=== PATIENT | male | born 1940 | race Caucasian/White ===

== ENCOUNTER → 2023-11-20 11:33 | Outpatient (REF) | payer OTHER, SELFPAY | LOC: HWRAD 11:33 | PROVIDERS: ATTENDING PHYSICIAN Family Medicine | DX: J20.9 Acute bronchitis, unspecified (principal) | CPT/HCPCS: 71046 ==

== ENCOUNTER → 2023-11-25 15:52 | Outpatient (REF) | payer OTHER, SELFPAY | LOC: DHCBC HW 15:52 | PROVIDERS: ATTENDING PHYSICIAN Internal Medicine; FAMILY PHYSICIAN Family Medicine | DX: I25.10 Atherosclerotic heart disease of native coronary artery without angina pectoris (principal); R07.9 Chest pain, unspecified; I73.9 Peripheral vascular disease, unspecified | CPT/HCPCS: 93306 ==

== ENCOUNTER → 2023-12-16 07:39 | Outpatient (REF) | payer OTHER, SELFPAY | LOC: DHCBC/DCA 07:39 | PROVIDERS: ATTENDING PHYSICIAN Internal Medicine; FAMILY PHYSICIAN Family Medicine | DX: R07.9 Chest pain, unspecified (principal); I25.10 Atherosclerotic heart disease of native coronary artery without angina pectoris; I73.9 Peripheral vascular disease, unspecified | CPT/HCPCS: 78452; 93017; A9500; J2785 ==

== ENCOUNTER → 2024-02-16 09:41 | Outpatient (REF) | payer OTHER, SELFPAY | LOC: RAD 09:41 | PROVIDERS: ATTENDING PHYSICIAN Surgery Vascular Surgery; FAMILY PHYSICIAN Family Medicine | DX: I73.9 Peripheral vascular disease, unspecified (principal) | CPT/HCPCS: 93922; 93925 ==

== ENCOUNTER → 2024-08-30 13:24 | Outpatient (REF) | payer OTHER, SELFPAY | LOC: MRI 13:24 | PROVIDERS: ATTENDING PHYSICIAN Orthopaedic Surgery; FAMILY PHYSICIAN Family Medicine | DX: M54.50 Low back pain, unspecified (principal) | CPT/HCPCS: 72148 ==

== ENCOUNTER → 2024-09-01 10:47 | Outpatient (REF) | payer OTHER, SELFPAY | LOC: RAD 10:47 | PROVIDERS: ATTENDING PHYSICIAN Registered Nurse; FAMILY PHYSICIAN Family Medicine | DX: I73.9 Peripheral vascular disease, unspecified (principal) | CPT/HCPCS: 93922; 93925 ==

== ENCOUNTER → 2024-09-27 11:30 | Outpatient (REF) | payer OTHER, SELFPAY ==
[2024-09-27 15:52] LABS: Albumin 4.2 g/dl (3.5-5.0); Blood Urea Nitrogen 23 mg/dl (9-20); Calcium 9.5 mg/dl (8.4-10.2); Carbon Dioxide 24 mmol/L (22-30); Chloride 107 mmol/L (98-107); Glucose 110 mg/dl (70-99); Phosphorus 4.4 mg/dl (2.5-4.5); Potassium 4.7 mmol/L (3.5-5.1); Sodium 140 mmol/L (135-145); eGFR > 60.00
== END ==
LOC: HWLAB 11:30
PROVIDERS: ATTENDING PHYSICIAN Hospitalist; FAMILY PHYSICIAN Family Medicine
DX: I10 Essential (primary) hypertension (principal); N18.31 Chronic kidney disease, stage 3a; R80.9 Proteinuria, unspecified; E11.59 Type 2 diabetes mellitus with other circulatory complications
CPT/HCPCS: 36415; 80069

== ENCOUNTER 2024-12-09 06:18 | Day surgery (SDC) | payer OTHER, SELFPAY | END 2024-12-09 12:22 | disposition home or self-care (01) | LOC: GI 06:18 | PROVIDERS: ATTENDING PHYSICIAN Internal Medicine Gastroenterology | DX: K51.20 Ulcerative (chronic) proctitis without complications (principal); K63.89 Other specified diseases of intestine; K64.8 Other hemorrhoids; Z79.01 Long term (current) use of anticoagulants | CPT/HCPCS: 45331; 88305 ==

== ENCOUNTER → 2025-04-27 14:58 | Outpatient (REF) | payer OTHER, SELFPAY | LOC: HWRCS 14:58 | PROVIDERS: ATTENDING PHYSICIAN Internal Medicine; FAMILY PHYSICIAN Family Medicine | DX: R42 Dizziness and giddiness (principal); I25.10 Atherosclerotic heart disease of native coronary artery without angina pectoris; I10 Essential (primary) hypertension; I47.29 Other ventricular tachycardia | CPT/HCPCS: 93306 ==

== ENCOUNTER 2025-05-26 11:39 | Emergency (ER) | payer OTHER, SELFPAY ==
[2025-05-26] VITALS (8 sets, daily range): BP systolic 140–172; BP diastolic 73–99; BMI 27.0
--- NOTE | 2025-05-26 13:49 | ED.GENMED ---
History of Present Illness
General
Chief Complaint: Chest Pain
Source: patient
Exam Limitations: none
Time Seen by Provider: 05/26/25 13:35
History of Present Illness
History of Present Illness:
84-year-old male presents with intermittent chest pressure on the left side of chest that radiates up the left side of his neck over the past couple weeks but worse over the past 2 days. He has history of coronary artery disease requiring bypass
surgery. He has a pacemaker on [employer]. He is followed by Dr. Jones. He denies any significant or new leg swelling. No recent travel. He states yesterday he was bowling without any difficulty and has been golfing once a week without any
difficulty. He states he recently had an echocardiogram about a month ago which checked out okay as well.
Past History
Past History
ED Past Medical History: CAD, HTN, Hypercholesterolemia, NIDDM and Other (IBS)
ED Past Surgical History: Appendectomy, Cardiac and Orthopedic
Social History
Tobacco: Non-smoker
Alcohol: None
Personal:
Living: with family
Employment: Retired
Family History
Family History: Cancer
Phy Exam
Physical Exam
Physical Exam:
General: Well-appearing nontoxic male no acute respiratory distress
HEENT normal cephalic atraumatic
Heart: Regular rate and rhythm
Lungs: Clear no obvious wheeze or rales
Extremities mild pitting edema bilateral lower extremities
Vascular 2+ DP pulse and 2+ radial pulse bilaterally
Scores
Heart Score for Chest Pain Patients
STEMI patient?: No
History: Slightly or Non-Suspicious
ECG: Normal
Age: >/= 65 years
Risk Factors: >/= 3 Risk Factors or History of CAD
Troponin: </= Normal Limit
Heart Score for Chest Pain Patients: 4
Heart Score Risk: 20.3% MACE over next 6 weeks
Course
Orders/Labs/Results
Orders:
Orders
05/26/25 11:39
ECG [Electrocardiogram (*1)] Urgent
Reason for Study: Chest Pain
EKG- Treatment ONCE
05/26/25 13:49
CT Chest Angio W/wo Iv Contras Urgent
Comment:
Reason For Exam: chest and neck pain
05/26/25 13:51
Interrogate Pacemaker- Treatment ONCE
05/26/25 14:55
Complete Blood Count/With Diff Urgent
NT-proBNP Urgent
Troponin I Urgent
05/26/25 15:52
Comprehensive Metabolic Panel Urgent
05/26/25 17:37
Dextrose 50%-Water [Dextrose 50% Syringe] 25 grams IV NOW STA
Abnormal Lab Results
05/26/25 05/26/25 05/26/25
14:55 15:52 17:35
WBC 11.0 H 10^3/uL
(4.8-10.8)
MCV 95.5 H fL
(80.0-94.0)
MCHC 32.3 L g/dL
(33.0-37.0)
MPV 12.5 H fL
(7.4-10.4)
Absolute Neuts (auto) 7.7 H 10^3/uL
(1.4-6.5)
Absolute Monos (auto) 0.9 H 10^3/uL
(0.1-0.6)
Chloride 111 H mmol/L
(98-107)
BUN 22 H mg/dl
(9-20)
Glucose 51 L* mg/dl
(70-99)
POC Glucose 57 L mg/dl
(70-99)
05/26/25
17:57
WBC
MCV
MCHC
MPV
Absolute Neuts (auto)
Absolute Monos (auto)
Chloride
BUN
Glucose
POC Glucose 141 H mg/dl
(70-99)
05/26/25 14:55
05/26/25 15:52
Vital Signs
Initial and Last Documented VS:
Initial Vital Signs
Temp Pulse BP Pulse Ox
97.6 F 68 156/94 97
05/26/25 11:46 05/26/25 11:46 05/26/25 11:46 05/26/25 11:46
Last Documented Vital Signs
Temp Pulse Resp BP Pulse Ox
97.6 F 65 16 144/90 93
05/26/25 11:46 05/26/25 17:45 05/26/25 17:50 05/26/25 17:30 05/26/25 17:30
MDM/Problems Addressed
Differential Diagnosis Includes:
Patient with intermittent chest pressure rating to his neck. Differential could include ACS versus dissection versus CHF
Will interrogate pacemaker for arrhythmia. Will check labs including troponin and BNP. Will order CT angio of the chest given his description of symptoms.
Personal interpretation of the EKG demonstrates dual paced rhythm without evidence of ischemic changes
*Pulse Oximetry
SaO2: 97
Patient hypoxic: no
*Critical Care Note
Total Time (30-74mins, 75-104mins- exclusive of procedures): Not Applicable
Update Note
Update Note:
Workup here essentially unremarkable other than hypoglycemia. He is on glipizide, insulin and Mounjaro and Jardiance. Sugar was 51 he was given orange juice and an increase to 57 he was then given an amp of D50 which went up to 141. Patient
states he wants to leave and does not want to stay here. Given his chest discomfort will advise he follow-up with cardiology, chest pain hotline was used. He does admit to recently starting Mounjaro and wonders if his symptoms are related to new
medication. 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
ED Attending Note
-
Portions of this chart may have been created with voice recognition software.� Occasional wrong word or��sound alike� substitutions may have occurred due to the inherent limitations of voice recognition software.
Discharge Plan
Departure
Patient Disposition: Home (Routine Discharge)
Date of Disposition: 05/26/25
Time of Disposition: 18:38
Patient with high blood pressure during this ER visit?: No
Discharge Problem:
Chest pain, Hypoglycemia
Instructions: Chest Pain CBC Follow Up
Prescriptions:
No Action
metformin 850 MG tablet
1,000 mg PO BID
atorvastatin 40 MG tablet
80 mg PO QPM
sitagliptin phosphate [Januvia] 100 MG tablet
100 mg PO DAILY
oxycodone-acetaminophen 5 MG/325 MG tablet
1 tab PO Q4HPRN PRN (Reason: pain) Qty: 20 0RF
metaxalone 400 MG tablet
400 mg PO BIDPRN PRN (Reason: pain)
glipizide 2.5 MG tablet extended release 24hr
2.5 mg PO BID
Patient Comments:
pt wrote on paper 4x daily . need clarification
losartan-hydrochlorothiazide 1 EACH tablet
1 ea PO DAILY
mesalamine 1.2 GM tablet,delayed release (DR/EC)
1.2 gm PO BID
apixaban [Eliquis] 5 MG tablet
5 mg PO BID Qty: 0 0RF
Rx Instructions:
Resume sat am
Referrals:
Ramandeep Crews DO [Family Provider, Family Practice]
Activity Restrictions/Additional Instructions:
Please check your blood sugar every hour tonight as it was low here. Please follow up with cardiology for further evaluation of your chest pain as well as endocrinology for your low blood sugar and discuss the Monjaro.
Interventions
Interventions:
*Risk Screen - Suicide Last Done: 05/26/25 11:48
*General Assessment Last Done: 05/26/25 15:06
*Neglect/Abuse Screening Last Done: 05/26/25 11:48
*ED COVID-19 Vaccine History Last Done: 05/26/25 15:06
*ED Influenza Vaccine History Last Done: 05/26/25 15:06
ED- Cardiac Assessment Last Done: 05/26/25 15:00
Discharge Date and Time
Print Language: URDU
[2025-05-26 15:18] LABS: Hematocrit 46.2 % (39.0-52.0); Hemoglobin 14.9 g/dL (13.0-18.0); Mean Corp Hgb Conc. 32.3 g/dL (33.0-37.0); Mean Corpuscular Volume 95.5 fL (80.0-94.0); Nucleated Red Blood Cells % 0 % (-); Platelet Count 173 10^3/uL (130-400); Red Cell Dist. Width 13.6 % (11.5-14.5)
[2025-05-26 15:45] LABS: Troponin I 0.026 ng/ml
[2025-05-26 16:24] LABS: ALT (SGPT) 38 U/L (0-50); AST (SGOT) 29 U/L (17-59); Albumin 3.8 g/dl (3.5-5.0); Alkaline Phosphatase 45 U/L (38-126); Blood Urea Nitrogen 22 mg/dl (9-20); Calcium 9.0 mg/dl (8.4-10.2); Carbon Dioxide 26 mmol/L (22-30); Chloride 111 mmol/L (98-107); Estimated Creatinine Clearance 52 ml/min; Glucose 51 mg/dl (70-99); Potassium 3.5 mmol/L (3.5-5.1); Sodium 138 mmol/L (135-145); Total Protein 6.3 g/dl (6.3-8.2); eGFR > 60.00
[2025-05-26 17:37] LABS: Glucose - Point of Care 57 mg/dl (70-99)
[2025-05-26] MEDS: DEXTROSE 50% SYRINGE 25 GRAMS IV (17:39)
[2025-05-26 17:58] LABS: Glucose - Point of Care 141 mg/dl (70-99)
== END 2025-05-26 19:24 | disposition home or self-care (01) ==
LOC: EMR 11:39
PROVIDERS: Physician Assistant; EMERGENCY PHYSICIAN Emergency Medicine; FAMILY PHYSICIAN Family Medicine
DX: R07.89 Other chest pain (principal); E11.649 Type 2 diabetes mellitus with hypoglycemia without coma; E78.00 Pure hypercholesterolemia, unspecified; I10 Essential (primary) hypertension; I25.10 Atherosclerotic heart disease of native coronary artery without angina pectoris; Z90.49 Acquired absence of other specified parts of digestive tract; Z79.01 Long term (current) use of anticoagulants
CPT/HCPCS: 99284; 96374; 71275; 80053; 82962; 83880; 84484; 85025; 93005; Q9967

== ENCOUNTER 2025-06-16 07:49 | Day surgery (SDC) | payer OTHER, SELFPAY ==
[2025-06-16] VITALS (9 sets, daily range): BP systolic 124–173; BP diastolic 70–95; BMI 27.3
[2025-06-16 08:42] LABS: Glucose - Point of Care 136 mg/dl (70-99)
--- NOTE | 2025-06-16 10:45 | ITS.CL.CATH ---
[employer] - Catheterization
Cardiac Catheterization
Procedure Report:
CARDIAC CATHETERIZATION REPORT
Date of Procedure: 06/16/2025
Referring: Slava Alanis M.D., Ph.D.
INDICATION: Chest discomfort, known coronary artery disease, abnormal stress test.
PROCEDURE:
1. Left heart catheterization.
2. Coronary angiography.
3. Bypass angiography.
A total of 30 minutes of procedural/moderate sedation was utilized. An independent medical affairs manager was present to assist with and help manage the patient's level of consciousness and physiologic status.
ACCESS:
1. 6 [place] left radial artery using a modified Seldinger technique.
CATHETERS:
1. 5 [place] TINY.
2. 5 [place] JL 4.
3. 5 [place] JR4.
HEMODYNAMIC DATA
Weight (kg): 86.2
AO (s/d/x, mmHg): 128/71/94
LV (s/x mmHg): 130/14
AV gradient (x, mmHg): None.
LEFT VENTRICULOGRAPHY: Not performed.
CORONARY ANGIOGRAPHY
Dominance: Left.
Left Main: Normal size, bifurcating vessel. The vessel is chronically totally occluded in its midportion.
LAD: Normal size vessel giving rise to 2 notable diagonals. The vessel is chronically occluded through its midportion. The vessel supplied by a patent ANDREWS graft. The first diagonal is supplied by the proximal branch of the sequential
vein graft.
Ramus: Congenitally absent.
Circumflex: Large size, dominant vessel giving rise to several small obtuse marginals before terminating as an LPDA. The vessel is chronically totally occluded in its origin. The distal circumflex is supplied by the sequential vein graft.
RCA: Small size, nondominant vessel. There is a chronic total occlusion of the proximal vessel that is supplied by a bridging collateral.
BYPASS GRAFT ANGIOGRAPHY
ANDREWS to LAD: Normal size graft with end-to-side anastomosis to the mid/distal LAD. There is no evidence of stenosis or graft degeneration.
SVG to D1 to LCx: Large size graft with [id number] anastomosis to the first diagonal and end-to-side anastomosis to the distal circumflex. There are trivial luminal irregularities.
INTERVENTION(S)
None.
Closure Device: Vascular band.
Radiation (mGy): 381.42
DAP (cm2.Gy): 24.7227
Fluoroscopy time (minutes): 3.9
CONCLUSIONS
1. Left dominant circulation with chronic total occlusion of the left main coronary artery, proximal LAD and proximal circumflex as well as the proximal RCA with a bridging collateral, status post 3V CABG (patent ANDREWS to LAD, patent sequential SVG
to D1 to distal LCx).
2. Mildly elevated filling pressures (LVEDP = 14 mmHg at 86.2 kg).
RECOMMENDATIONS:
1. Expectant management after cardiac catheterization via left radial approach.
2. Limited weight bearing on the left wrist for one week.
3. Continue OMT/GDMT as hemodynamics will tolerate.
4. Secondary prevention with high-dose, high potency statin and ezetimibe. Goal LDL <55.
5. Patient is essentially at dry weight given an LVEDP of 14 mmHg.
6. Consider alternative diagnoses for the patient's chest discomfort, possibly GERD/esophageal spasm.
7. Stable for outpatient follow-up.
Copy to: Slava Alanis M.D., Ph.D., Roxane Fontenot.Chantal.
Jorge Gasca DO, FACC, FACP
== END 2025-06-16 13:53 | disposition home or self-care (01) ==
LOC: CATH 07:49
PROVIDERS: ATTENDING PHYSICIAN Internal Medicine Cardiovascular Disease; FAMILY PHYSICIAN Family Medicine; OTHER PHYSICIAN Internal Medicine
DX: I25.10 Atherosclerotic heart disease of native coronary artery without angina pectoris (principal); R94.39 Abnormal result of other cardiovascular function study; R07.89 Other chest pain; I25.82 Chronic total occlusion of coronary artery; Z95.1 Presence of aortocoronary bypass graft; I10 Essential (primary) hypertension; I48.3 Typical atrial flutter; I44.4 Left anterior fascicular block; I12.9 Hypertensive chronic kidney disease with stage 1 through stage 4 chronic kidney disease, or unspecified chronic kidney disease; E11.22 Type 2 diabetes mellitus with diabetic chronic kidney disease; N18.31 Chronic kidney disease, stage 3a; Z87.891 Personal history of nicotine dependence; E78.5 Hyperlipidemia, unspecified; Z79.01 Long term (current) use of anticoagulants; Z79.85 Long-term (current) use of injectable non-insulin antidiabetic drugs; Z79.84 Long term (current) use of oral hypoglycemic drugs
CPT/HCPCS: 99152; 99153; 82962; 93459; C1769; C1894; Q9967

== ENCOUNTER 2025-07-31 10:30 | Emergency (ER) | payer OTHER, SELFPAY ==
[2025-07-31 10:35] VITALS: BP 161/94
--- NOTE | 2025-07-31 11:50 | ED.GENMED ---
History of Present Illness
General
Chief Complaint: Back Pain
Source: patient and spouse
Time Seen by Provider: 07/31/25 11:33
History of Present Illness
History of Present Illness:
84-year-old male with past medical history of CAD status post CABG, insulin-dependent diabetes, hypertension and hyperlipidemia presenting to the ER for evaluation of left lower back pain has been ongoing for about 1 week, gradually worsening during
this time, notes that he was awoken around 3 AM with sharper and more severe pain within the left lower back radiating to the left knee, yesterday did take some Advil with no relief, today took the same but states had moderate relief of his pain.
He has a noted history for chronic back issues including having previous herniated disc repair in 2016 and in 2009 but does not follow with any back specialist presently but has seen [facility] orthopedics in the past. Patient denies any fevers
or infectious symptoms, traumatic injuries, focal weakness or numbness, bowel or urinary incontinence, saddle anesthesia, or any other concerns. Patient is currently declining any medication for pain.
Past History
Past History
ED Past Medical History: CAD, HTN, Hypercholesterolemia, NIDDM and Other (IBS)
ED Past Surgical History: Appendectomy, Cardiac and Orthopedic
Social History
Tobacco: Non-smoker
Alcohol: None
Drug: None
Personal:
Living: with family
Employment: Retired
Family History
Family History: Cancer
Review of Systems
Review of Systems
All Other Systems: ROS reviewed and negative except as documented in HPI and ROS
Phy Exam
Physical Exam
Physical Exam:
GENERAL: Alert , in no apparent distress
EYE: clear conjunctiva b/l
NECK: Supple
ENT: o/p clr, mmm.
BACK: Normal range of motion, no focal tenderness, no midline bony tenderness, no rashes
NEUROLOGICAL: Alert and oriented, no focal neuro deficits. Patellar deep tendon reflexes intact and equal bilaterally, sensation grossly intact and equal to light touch bilateral lower extremities. Ambulates with steady gait
SKIN: Warm and dry, skin intact.
MUSCULOSKELETAL: No edema, well perfused. EHL intact bilaterally
PSYCH: Normal and appropriate interaction.
Scores
Heart Failure Risk
Heart Failure Risk Score: Not Applicable
Heart Score for Chest Pain Patients
STEMI patient?: Not applicable
Withdrawal Assessment of Alcohol
Withdrawal Assessment Completed?: Not applicable
Course
Orders/Labs/Results
Orders:
Orders
07/31/25 12:18
Basic Metabolic Panel Urgent
Complete Blood Count/With Diff Urgent
Urinalysis Reflex To Culture Urgent
Date Specimen was Collected: 07/31/25
Time Specimen was Collected: 11:53
Urine Microscopic Reflex Cult Urgent
Abnormal Lab Results
07/31/25
12:18
MCH 31.1 H pg
(27.0-31.0)
MPV 12.1 H fL
(7.4-10.4)
Absolute Monos (auto) 0.7 H 10^3/uL
(0.1-0.6)
Monocytes % 9.7 H %
(1.7-9.3)
Carbon Dioxide 21 L mmol/L
(22-30)
BUN 22 H mg/dl
(9-20)
Glucose 130 H mg/dl
(70-99)
Ur Occult Blood Reflex 2+ A
(Negative)
Urine RBC 3-6 A /HPF
(0-2)
Urine Bacteria (Reflex) Few A
(Negative)
Urine Glucose 4+ A
(Negative)
Urine Albumin (Reflex) 3+ A
(Neg - Trace)
07/31/25 12:18
07/31/25 12:18
Vital Signs
Initial and Last Documented VS:
Initial Vital Signs
Temp Pulse Resp BP Pulse Ox
97.7 F 69 20 161/94 97
07/31/25 10:35 07/31/25 10:35 07/31/25 10:35 07/31/25 10:35 07/31/25 10:35
Last Documented Vital Signs
Temp Pulse Resp BP Pulse Ox
97.7 F 69 20 161/94 97
07/31/25 10:35 07/31/25 10:35 07/31/25 10:35 07/31/25 10:35 07/31/25 11:56
MDM/Problems Addressed
Differential Diagnosis Includes:
Spinal stenosis
Disc herniation
Nerve impingement
Compression fracture
Infectious etiology considered given patient's history of insulin-dependent diabetes however currently without any infectious symptoms
Less concern for urinary infection
MDM/Problems Addressed:
84-year-old male presenting to the ER for evaluation of left-sided lower back pain, pain x 1 week, worse last night but notes after Advil this morning he had moderate relief of symptoms. Symptoms do seem to be radicular in nature, overall patient
well-appearing, no focal neurologic deficits noted, currently hemodynamically stable. He is declining anything for pain. Given his age and chronic medical conditions will check a set of labs and urine. Encourage close follow-up with primary care
provider and may need to see Ortho if pain persists.
*Pulse Oximetry
SaO2: 97
Oxygen Mode of Delivery: Room air
Patient hypoxic: no
*Critical Care Note
Total Time (30-74mins, 75-104mins- exclusive of procedures): Not Applicable
Data Reviewed
Review of Other/Old Records Reveals: Records and Radiology Studies
Source: patient and records
Comment
Comment:
Patient had an MRI in August 2024 which showed the following results:
IMPRESSION:
1. MODERATE CENTRAL CANAL STENOSIS and moderate left neural foraminal narrowing at L2/L3 which has increased since 03/10/2019.
2. MODERATE CENTRAL CANAL STENOSIS and moderate bilateral neural foraminal narrowing at L3/L4 which has increased since 03/10/2019.
3. Severe right neural foraminal narrowing at L4/L5 which appears unchanged. Previous L4/L5 laminectomy and posterior decompression.
4. Severe right and moderate left neural foraminal narrowing at L5/S1 which appears unchanged.
Patient Management
Escalation/DeEscalation of care consider admission/obs:
Patient's workup is largely markable. He did have microscopic hematuria however his symptoms do not seem to be related to a renal/ureteral colic. Given the seemingly radicular nature of the pain we will attempt gabapentin. Patient advised on
potential side effects of the gabapentin including sleepiness/drowsiness and advised caution with use. Encourage close follow-up with primary care provider. Discussed return precautions.
ED Attending Note
-
Portions of this chart may have been created with voice recognition software.� Occasional wrong word or��sound alike� substitutions may have occurred due to the inherent limitations of voice recognition software.
Discharge Plan
Departure
Patient Disposition: Home (Routine Discharge)
Date of Disposition: 07/31/25
Time of Disposition: 13:29
Patient with high blood pressure during this ER visit?: Yes
Discharge Problem:
Low back pain
Instructions: Low Back Pain (DC)
Prescriptions:
New
gabapentin 300 mg capsule
300 mg PO HS PRN (Reason: pain) Qty: 10 0RF
No Action
metformin 850 MG tablet
1,000 mg PO BID
atorvastatin 40 MG tablet
80 mg PO QPM
glipizide 2.5 MG tablet extended release 24hr
2.5 mg PO BID
Patient Comments:
pt wrote on paper 4x daily . need clarification
losartan-hydrochlorothiazide 1 EACH tablet
1 ea PO DAILY
mesalamine 1.2 GM tablet,delayed release (DR/EC)
1.2 gm PO BID
insulin glargine [Lantus U-100 Insulin] 100 unit/mL Solution
45 unit SC QPM
metoprolol succinate 25 mg Tablet Extended Release 24 Hr
25 mg PO DAILY
finasteride 5 mg Tablet
5 mg PO QPM
ezetimibe 10 mg Tablet
10 mg PO DAILY
Jardiance 25 mg Tablet
25 mg PO QPM
Mounjaro 5 mg/0.5 mL Pen Injector
5 mg SC QWEEK
Eliquis 5 MG tablet
5 mg PO BID Qty: 0 0RF
Referrals:
Ramandeep Crews DO [Family Provider, Family Practice]
Ricky Fermin MD [Active, Orthopedics]
Interventions
Interventions:
*ED COVID-19 Vaccine History Last Done: 07/31/25 10:35
*ED Influenza Vaccine History Last Done: 07/31/25 10:35
*Risk Screen - Suicide (C-SSRS) Last Done: 07/31/25 10:35
Discharge Date and Time
Print Language: GERMAN
[2025-07-31 12:28] LABS: Urine Character Clear (Clear)
[2025-07-31 12:41] LABS: Hematocrit 46.5 % (39.0-52.0); Hemoglobin 15.6 g/dL (13.0-18.0); Mean Corp Hgb Conc. 33.5 g/dL (33.0-37.0); Mean Corpuscular Volume 92.8 fL (80.0-94.0); Nucleated Red Blood Cells % 0 % (-); Platelet Count 180 10^3/uL (130-400); Red Cell Dist. Width 12.8 % (11.5-14.5)
[2025-07-31 13:04] LABS: Blood Urea Nitrogen 22 mg/dl (9-20); Calcium 9.6 mg/dl (8.4-10.2); Carbon Dioxide 21 mmol/L (22-30); Chloride 107 mmol/L (98-107); Glucose 130 mg/dl (70-99); Potassium 4.6 mmol/L (3.5-5.1); Sodium 139 mmol/L (135-145); eGFR 59.63
[2025-07-31 13:19] LABS: Urine Squamous Cell 0-2 /LPF (Few); Urine White Cell 0-2 /HPF (0-5)
== END 2025-07-31 14:46 | disposition home or self-care (01) ==
LOC: EMR 10:30
PROVIDERS: Physician Assistant Medical; EMERGENCY PHYSICIAN Emergency Medicine; FAMILY PHYSICIAN Family Medicine
DX: M54.50 Low back pain, unspecified (principal); E11.9 Type 2 diabetes mellitus without complications; I25.810 Atherosclerosis of coronary artery bypass graft(s) without angina pectoris; I10 Essential (primary) hypertension; E78.00 Pure hypercholesterolemia, unspecified; K58.9 Irritable bowel syndrome, unspecified; M48.061 Spinal stenosis, lumbar region without neurogenic claudication; Z79.4 Long term (current) use of insulin; Z79.84 Long term (current) use of oral hypoglycemic drugs; Z79.85 Long-term (current) use of injectable non-insulin antidiabetic drugs; Z95.1 Presence of aortocoronary bypass graft
CPT/HCPCS: 99283; 80048; 81003; 81015; 85025